=== PATIENT | female | born 1945 | race Caucasian/White ===

== ENCOUNTER 2024-07-14 20:54 | Inpatient (IN) | payer MEDICARE ==
[~2024-07-14] VITALS: Ht 160 cm; Wt 81.6 kg
[2024-07-14 21:29] LABS: BASOPHILS % (AUTO) 0.2 % (0.0-2.0); EOSINOPHILS % (AUTO) 0.2 % (0.0-7.0); HEMATOCRIT 36.2 % (31.2-41.9); HEMOGLOBIN 12.1 g/dL (10.9-14.3); LYMPHOCYTES # (AUTO) 1.4 K/uL (0.8-4.8); MEAN CORPUSCULAR HEMOGLOBIN 32.5 uug (24.7-32.8); MEAN CORPUSCULAR HGB CONC 33 g/dL (32.3-35.6); MEAN CORPUSCULAR VOLUME 97.6 fL (75.5-95.3); MONOCYTES # (AUTO) 1.3 K/uL (0.1-1.30); MONOCYTES % (AUTO) 14.7 % (0.0-11.0); NEUTROPHILS # (AUTO) 6.2 K/uL (1.8-8.9); NEUTROPHILS % (AUTO) 68.9 % (38.5-71.5); PLATELET COUNT (AUTO) 154 K/uL (179-408); RED BLOOD CELL COUNT(AUTO) 3.71 MIL/uL (3.63-4.92)
[2024-07-14 21:30] LABS: DIFFERENTIAL COMMENT 1
[2024-07-14 21:35] LABS: CALCIUM 9.1 mg/dL (8.5-10.1); CARBON DIOXIDE 29 mmol/L (21-32); CHLORIDE 104 mmol/L (98-107); GLUCOSE 123 mg/dL (74-106); SODIUM SERUM 142 mmol/L (136-145); UREA NITROGEN, BLOOD 17 mg/dL (7-18)
[2024-07-14 21:40] LABS: *BILIRUBIN,URIN NEGATIVE (NEGATIVE); *BLOOD, URINE 1+ (NEGATIVE); *CLARITY,URINE CLEAR (CLEAR); *COLOR,URINE YELLOW (YELLOW); *KETONES,URINE NEGATIVE (NEGATIVE); *PROTEIN,URINE NEGATIVE (NEGATIVE); *UROBILINOGEN,URINE 0.2 E.U./dl (NORMAL); LEUKOCYTE ESTERASE ,URINE 3+ (NEGATIVE); NITRITE, URINE NEGATIVE (NEGATIVE); UGLUCOSE NEGATIVE (NEGATIVE)
[2024-07-14 21:48] LABS: ALANINE AMINOTRANSFERASE 29 U/L (14-59); ALBUMIN 3.1 g/dL (3.4-5.0); ALKALINE PHOSPHATASE 97 U/L (50-136); ASPARTATE AMINOTRANSFERASE 24 U/L (15-37); BILIRUBIN,TOTAL 1.2 mg/dL (0.2-1.0); NT-PRO BNP 361 pg/mL (0-125); TOTAL PROTEIN, SERUM 6.2 g/dL (6.4-8.2)
[2024-07-14] MEDS ORDERED: AZIT250T PO (23:15)
[2024-07-14 23:38] LABS: ABG BASE EXCESS -1.4 mmol/L (-2.0-3.0); ABG HCO3 21.9 mmol/L (21.0-28.0); ABG PCO2 32.7 mmHg (32.0-45.0); ABG PH 7.444 (7.350-7.450); ABG PO2 67.1 mmHg (83.0-108.0); ABG SITE RIGHT RADIAL; ABG TOTAL HEMOGLOBIN 12.8 G/dL (12.0-16.0); AaDO2 94.3 mmHg; COHb 0.4 % (0.5-1.5); MetHb 0.4 % (0.0-1.5); O2Hb 92.7 % (94.0-98.0)
[2024-07-15] MEDS ORDERED: ACETAMINOPHEN 325 MG TABLET PO PRN (01:30)
[2024-07-15] MEDS ORDERED: ONDANSETRON 4 MG/2 ML VIAL IV PRN (01:30)
[2024-07-15] MEDS ORDERED: ATOR80TA PO (02:02)
[2024-07-15] MEDS ORDERED: MEMA10TA PO (02:02)
[2024-07-15] MEDS ORDERED: LISI-782 PO (02:02)
[2024-07-15] MEDS ORDERED: ASPI81TA31 PO (02:02)
[2024-07-15] MEDS ORDERED: TRAZ-257 PO (02:02)
[2024-07-15] MEDS ORDERED: CYAN500T9 PO (02:02)
[2024-07-15] MEDS ORDERED: LOPE2TAB25 PO (02:02)
[2024-07-15] MEDS ORDERED: ERGO500040 PO (02:02)
[2024-07-15] MEDS ORDERED: OLAN5TAB70 PO (02:02)
[2024-07-15] MEDS ORDERED: MAGN400O6 PO (02:02)
[2024-07-15] MEDS ORDERED: MELA3TAB52 PO (02:02)
[2024-07-15] MEDS ORDERED: ACET-3117 PO (02:02)
[2024-07-15] MEDS ORDERED: MAG355OR18 PO (02:07)
[2024-07-15] MEDS: PANTOPRAZOLE SODIUM 40 MG TABLET.DR PO SCH (06:17)
[2024-07-15 06:25] VITALS: BP 111/49; TEMP 97.6; O2SAT 93
[2024-07-15 06:42] LABS: BASOPHILS % (AUTO) 0.2 % (0.0-2.0); EOSINOPHILS % (AUTO) 0.6 % (0.0-7.0); HEMATOCRIT 34.5 % (31.2-41.9); HEMOGLOBIN 11.6 g/dL (10.9-14.3); LYMPHOCYTES # (AUTO) 1.4 K/uL (0.8-4.8); LYMPHOCYTES % (AUTO) 24.4 % (20.5-51.5); MEAN CORPUSCULAR HEMOGLOBIN 32.9 uug (24.7-32.8); MEAN CORPUSCULAR HGB CONC 34 g/dL (32.3-35.6); MEAN CORPUSCULAR VOLUME 97.9 fL (75.5-95.3); MONOCYTES # (AUTO) 0.8 K/uL (0.1-1.30); MONOCYTES % (AUTO) 13.1 % (0.0-11.0); NEUTROPHILS # (AUTO) 3.6 K/uL (1.8-8.9); NEUTROPHILS % (AUTO) 61.7 % (38.5-71.5); PLATELET COUNT (AUTO) 138 K/uL (179-408); RED BLOOD CELL COUNT(AUTO) 3.52 MIL/uL (3.63-4.92); RED CELL DISTRIBUTION WIDTH 13.7 % (12.3-17.7); WHITE BLOOD COUNT (AUTO) 5.8 K/uL (3.8-11.8)
[2024-07-15 06:51] LABS: CARBON DIOXIDE 30 mmol/L (21-32); CHLORIDE 109 mmol/L (98-107); CREATININE 0.9 mg/dL (0.6-1.3); GLUCOSE 99 mg/dL (74-106); MAGNESIUM 2.1 mg/dL (1.8-2.4); POTASSIUM 4.1 mmol/L (3.5-5.1); SODIUM SERUM 145 mmol/L (136-145); UREA NITROGEN, BLOOD 13 mg/dL (7-18)
[2024-07-15 06:57] LABS: DIFFERENTIAL COMMENT 1
[2024-07-15 08:58] VITALS: BP 130/60; TEMP 98.5; O2SAT 92
[2024-07-15] MEDS: ENOXAPARIN SODIUM 40 MG/0.4 ML DISP.SYRIN SQ SCH (09:07)
[2024-07-15] MEDS: CEFTRIAXONE 1 G in IV DEXTROSE 5% 50 ML IV SCH (11:42)
[2024-07-15] MEDS: LISINOPRIL 5 MG TABLET PO SCH (12:42)
[2024-07-15] MEDS: ERGOCALCIFEROL 50,000 UNIT CAPSULE PO SCH (12:42)
[2024-07-15] MEDS ORDERED: ALBUTEROL SULFATE 2.5 MG/3 ML NEBU NEB PRN (12:45)
[2024-07-15 16:20] VITALS: O2SAT 95
[2024-07-15] MEDS: MEMANTINE HCL 10 MG TABLET PO SCH (17:50)
[2024-07-15 19:00] VITALS: BP 145/72; TEMP 98.9; O2SAT 95
[2024-07-15] MEDS: ATORVASTATIN 40 MG TABLET PO SCH (20:57)
[2024-07-15] MEDS: MELATONIN 3 MG TABLET PO SCH (20:57)
[2024-07-15] MEDS: TRAZODONE 100 MG TABLET PO SCH (20:57)
[2024-07-15] MEDS: OLANZAPINE 5 MG TABLET PO SCH (20:58)
[2024-07-15] MEDS ORDERED: ATORVASTATIN CALCIUM 80 MG PO SCH (21:00)
[2024-07-16 04:13] VITALS: O2SAT 96
[2024-07-16 06:00] VITALS: BP 132/69; TEMP 98.1; O2SAT 94
[2024-07-16 06:59] LABS: BASOPHILS % (AUTO) 0.3 % (0.0-2.0); EOSINOPHILS # (AUTO) 0.1 K/uL (0.0-0.7); HEMATOCRIT 34.8 % (31.2-41.9); LYMPHOCYTES # (AUTO) 1.7 K/uL (0.8-4.8); LYMPHOCYTES % (AUTO) 33.5 % (20.5-51.5); MEAN CORPUSCULAR HEMOGLOBIN 32.9 uug (24.7-32.8); MEAN CORPUSCULAR HGB CONC 34 g/dL (32.3-35.6); MEAN CORPUSCULAR VOLUME 95.6 fL (75.5-95.3); MONOCYTES # (AUTO) 0.7 K/uL (0.1-1.30); NEUTROPHILS # (AUTO) 2.5 K/uL (1.8-8.9); NEUTROPHILS % (AUTO) 50.2 % (38.5-71.5); PLATELET COUNT (AUTO) 158 K/uL (179-408); RED BLOOD CELL COUNT(AUTO) 3.64 MIL/uL (3.63-4.92); RED CELL DISTRIBUTION WIDTH 13.5 % (12.3-17.7); WHITE BLOOD COUNT (AUTO) 4.9 K/uL (3.8-11.8)
[2024-07-16 07:10] LABS: DIFFERENTIAL COMMENT 1
[2024-07-16 07:25] LABS: CALCIUM 8.7 mg/dL (8.5-10.1); CARBON DIOXIDE 28 mmol/L (21-32); CHLORIDE 108 mmol/L (98-107); CREATININE 0.8 mg/dL (0.6-1.3); GLUCOSE 85 mg/dL (74-106); MAGNESIUM 1.8 mg/dL (1.8-2.4); PHOSPHOROUS 3.5 mg/dL (2.5-4.9); POTASSIUM 3.7 mmol/L (3.5-5.1); SODIUM SERUM 146 mmol/L (136-145); UREA NITROGEN, BLOOD 8 mg/dL (7-18)
[2024-07-16] MEDS: ASPIRIN 81 MG TAB.CHEW PO SCH (08:16)
[2024-07-16] MEDS: CYANOCOBALAMIN 1,000 MCG TABLET PO SCH (08:16)
[2024-07-16] MEDS ORDERED: Medication Not On Formulary EA (Cyanocobalamin (Vitamin B-12) 500 MCG) PO SCH (09:00)
[2024-07-16 11:03] VITALS: BP 126/60; TEMP 97.8; O2SAT 93
[2024-07-16 15:27] VITALS: BP 101/57; TEMP 98.4; O2SAT 94
[2024-07-16 20:13] VITALS: BP 126/69; TEMP 98.7; O2SAT 94
[2024-07-16 21:08] VITALS: O2SAT 96
[2024-07-17] VITALS (7 sets, daily range): BP systolic 110–150; BP diastolic 61–82; TEMP 97.5–98.6; O2SAT 91–97
[2024-07-17 07:16] LABS: BASOPHILS % (AUTO) 0.3 % (0.0-2.0); EOSINOPHILS # (AUTO) 0.1 K/uL (0.0-0.7); EOSINOPHILS % (AUTO) 2.1 % (0.0-7.0); HEMOGLOBIN 11.4 g/dL (10.9-14.3); LYMPHOCYTES # (AUTO) 1.6 K/uL (0.8-4.8); MEAN CORPUSCULAR HEMOGLOBIN 33.1 uug (24.7-32.8); MEAN CORPUSCULAR HGB CONC 35 g/dL (32.3-35.6); MEAN CORPUSCULAR VOLUME 95.6 fL (75.5-95.3); MONOCYTES # (AUTO) 0.5 K/uL (0.1-1.30); MONOCYTES % (AUTO) 10.5 % (0.0-11.0); NEUTROPHILS # (AUTO) 2.6 K/uL (1.8-8.9); NEUTROPHILS % (AUTO) 54.1 % (38.5-71.5); PLATELET COUNT (AUTO) 165 K/uL (179-408); RED BLOOD CELL COUNT(AUTO) 3.45 MIL/uL (3.63-4.92); RED CELL DISTRIBUTION WIDTH 13.5 % (12.3-17.7); WHITE BLOOD COUNT (AUTO) 4.7 K/uL (3.8-11.8)
[2024-07-17 07:20] LABS: DIFFERENTIAL COMMENT 1
[2024-07-17 07:22] LABS: CALCIUM 8.7 mg/dL (8.5-10.1); CARBON DIOXIDE 28 mmol/L (21-32); CHLORIDE 108 mmol/L (98-107); CREATININE 0.8 mg/dL (0.6-1.3); GLUCOSE 88 mg/dL (74-106); POTASSIUM 3.9 mmol/L (3.5-5.1); SODIUM SERUM 145 mmol/L (136-145); UREA NITROGEN, BLOOD 7 mg/dL (7-18)
[2024-07-18 06:15] LABS: BASOPHILS % (AUTO) 0.2 % (0.0-2.0); EOSINOPHILS # (AUTO) 0.1 K/uL (0.0-0.7); HEMOGLOBIN 11.8 g/dL (10.9-14.3); LYMPHOCYTES # (AUTO) 1.7 K/uL (0.8-4.8); LYMPHOCYTES % (AUTO) 35.5 % (20.5-51.5); MEAN CORPUSCULAR HEMOGLOBIN 33.1 uug (24.7-32.8); MEAN CORPUSCULAR HGB CONC 35 g/dL (32.3-35.6); MEAN CORPUSCULAR VOLUME 95.3 fL (75.5-95.3); MONOCYTES # (AUTO) 0.5 K/uL (0.1-1.30); MONOCYTES % (AUTO) 9.8 % (0.0-11.0); NEUTROPHILS # (AUTO) 2.5 K/uL (1.8-8.9); NEUTROPHILS % (AUTO) 52.5 % (38.5-71.5); PLATELET COUNT (AUTO) 183 K/uL (179-408); RED BLOOD CELL COUNT(AUTO) 3.57 MIL/uL (3.63-4.92); RED CELL DISTRIBUTION WIDTH 13.4 % (12.3-17.7); WHITE BLOOD COUNT (AUTO) 4.8 K/uL (3.8-11.8)
[2024-07-18 06:52] LABS: CALCIUM 8.9 mg/dL (8.5-10.1); CARBON DIOXIDE 29 mmol/L (21-32); CHLORIDE 110 mmol/L (98-107); CREATININE 0.9 mg/dL (0.6-1.3); GLUCOSE 92 mg/dL (74-106); POTASSIUM 3.8 mmol/L (3.5-5.1); SODIUM SERUM 145 mmol/L (136-145); UREA NITROGEN, BLOOD 6 mg/dL (7-18)
[2024-07-18 07:05] VITALS: BP 149/74; TEMP 97.8; O2SAT 95
[2024-07-18 11:30] VITALS: BP 115/65; TEMP 98.3; O2SAT 98
[2024-07-18 15:11] VITALS: O2SAT 96
[2024-07-18 15:35] VITALS: BP 117/55; TEMP 98.4; O2SAT 93
[2024-07-18 20:00] VITALS: BP 134/82; TEMP 98.1; O2SAT 95
[2024-07-18] MEDS: GUAIFENESIN/DEXTROMETHORPHAN 5 ML UDC PO PRN (20:42)
[2024-07-18 21:31] VITALS: O2SAT 97
[2024-07-19 06:05] VITALS: BP 109/94; TEMP 97.9; O2SAT 95
[2024-07-19 06:28] LABS: BASOPHILS % (AUTO) 0.4 % (0.0-2.0); EOSINOPHILS # (AUTO) 0.1 K/uL (0.0-0.7); EOSINOPHILS % (AUTO) 2.1 % (0.0-7.0); HEMATOCRIT 34.9 % (31.2-41.9); HEMOGLOBIN 12.1 g/dL (10.9-14.3); LYMPHOCYTES # (AUTO) 1.9 K/uL (0.8-4.8); LYMPHOCYTES % (AUTO) 37.2 % (20.5-51.5); MEAN CORPUSCULAR HGB CONC 35 g/dL (32.3-35.6); MEAN CORPUSCULAR VOLUME 95.2 fL (75.5-95.3); MONOCYTES # (AUTO) 0.5 K/uL (0.1-1.30); NEUTROPHILS # (AUTO) 2.5 K/uL (1.8-8.9); NEUTROPHILS % (AUTO) 50.3 % (38.5-71.5); PLATELET COUNT (AUTO) 184 K/uL (179-408); RED BLOOD CELL COUNT(AUTO) 3.66 MIL/uL (3.63-4.92); RED CELL DISTRIBUTION WIDTH 13.3 % (12.3-17.7)
[2024-07-19 06:43] LABS: CALCIUM 9.1 mg/dL (8.5-10.1); CARBON DIOXIDE 29 mmol/L (21-32); CHLORIDE 108 mmol/L (98-107); CREATININE 0.8 mg/dL (0.6-1.3); GLUCOSE 111 mg/dL (74-106); POTASSIUM 3.9 mmol/L (3.5-5.1); SODIUM SERUM 144 mmol/L (136-145); UREA NITROGEN, BLOOD 8 mg/dL (7-18)
[2024-07-19 08:30] VITALS: O2SAT 96
[2024-07-19] MEDS: CEphaleXIN 500 MG CAPSULE PO SCH (11:01)
[2024-07-19 11:45] VITALS: BP 122/77; TEMP 97.8; O2SAT 95
[2024-07-19 15:43] VITALS: BP 113/76; TEMP 98.1; O2SAT 95
[2024-07-19 19:30] VITALS: BP 115/63; TEMP 97.9; O2SAT 95
[2024-07-19 20:59] VITALS: O2SAT 95
[2024-07-20] MEDS ORDERED: CEPH500C2 PO (10:44)
[2024-07-20 11:22] VITALS: BP 108/59; TEMP 98.2; O2SAT 97
[2024-07-20 15:10] VITALS: BP 137/72; TEMP 98.2; O2SAT 96
== END 2024-07-20 16:20 | DRG 689 ==
LOC: ER 20:54 → TELE3 23:32 → MEDSURG3 07-15 03:47
PROVIDERS: ADMIT Nurse Practitioner Family; ATTEND Nurse Practitioner Family
DX: N39.0 Urinary tract infection, site not specified (principal); J96.01 Acute respiratory failure with hypoxia; J20.9 Acute bronchitis, unspecified; B96.20 Unspecified Escherichia coli [E. coli] as the cause of diseases classified elsewhere; E66.9 Obesity, unspecified; Z68.31 Body mass index [BMI] 31.0-31.9, adult; Z88.0 Allergy status to penicillin; E78.5 Hyperlipidemia, unspecified; E55.9 Vitamin D deficiency, unspecified; I10 Essential (primary) hypertension; G31.84 Mild cognitive impairment of uncertain or unknown etiology; F39 Unspecified mood [affective] disorder
CPT/HCPCS: 36415; 36600; 71045; 71250; 82803; 83735; 84100; 84484; 85025; A4606; A4663; G0378; J0696; J1650